=== PATIENT | male | born 1975 | race Caucasian/White ===

== ENCOUNTER → 2020-10-22 | Outpatient (CLI) | payer SELFPAY ==
[~2020-10-22] MED LIST: VICODIN ES 7501 TAB PO
== END | disposition home or self-care (01) ==
LOC: COVID19 15:59
PROVIDERS: ATTEND Internal Medicine
DX: U07.1 COVID-19 (principal)

== ENCOUNTER 2024-10-18 23:39 | Emergency (ER) | payer OTHER ==
[~2024-10-18] VITALS: Ht 185.4 cm; Wt 86.2 kg
[2024-10-18] MEDS ORDERED: MORPHINE Sulfate 2 MG/ML SYR IM ONE (23:45)
[2024-10-19] MEDS ORDERED: MELOXICAM15 MG PO (01:33)
== END 2024-10-19 01:56 | disposition home or self-care (01) ==
LOC: ED 23:39
DX: M54.2 Cervicalgia (principal); M54.6 Pain in thoracic spine; E78.5 Hyperlipidemia, unspecified; Z91.040 Latex allergy status; V49.9XXA Car occupant (driver) (passenger) injured in unspecified traffic accident, initial encounter; Y93.89 Activity, other specified; Y92.410 Unspecified street and highway as the place of occurrence of the external cause; Y99.8 Other external cause status